=== PATIENT | female | born 1975 | race Caucasian/White ===

== ENCOUNTER → 2017-03-29 | Outpatient (CLI) | payer SELFPAY ==
[~2017-03-29] MED LIST: CERTAGEN PO; EXCEDRIN EXTRA1 TAB PO; FERROUS SULFATE PO; OMEPRAZOLE20 M1 PO; OMEPRAZOLE40 MG PO; ORTHOTRICYCLINE; SYNTHROID PO; VIT B-12; VITAMIN D50000 UNIT PO
== END | disposition home or self-care (01) ==
LOC: CBAR 12:44
DX: E66.01 Morbid (severe) obesity due to excess calories (principal)
CPT/HCPCS: 76000